=== PATIENT | male | born 1985 | race Caucasian/White ===

== ENCOUNTER 2020-01-30 20:46 | Emergency (ER) | payer OTHER ==
[~2020-01-30] VITALS: Ht 165.1 cm; Wt 62.6 kg
[2020-01-30 20:52] VITALS: BP 150/108
--- NOTE | 2020-01-30 21:49 | NUR ---
PT TAKEN TO CHAIR B
--- NOTE | 2020-01-30 21:51 | NUR ---
Dr. Felipe examining patient.
--- NOTE | 2020-01-30 22:33 | NUR ---
34 Y/O MALE PRESENTS WITH DRY MOUTH/ LIGHTHEADEDNESS/ DIZZNESS S/P DRINKING AND ENERGY DRINK. PT STATES HE USUALLY DOES NOT DRINK CAFFEINATED PRODUCTS. RESP EVEN AND UNLABORED. LUNG SOUNDS CLEAR IN BILAT LOBES. DENIES COUGH/SOB/CHEST PAIN. PT STATES HE FEELS HIS HEART RACING ON/OFF BUT DOES NOT REPORT PAIN. SCLERA IS RED. [id number]. DENIES ANY RECENT DRUG/ALCOHOL USE. NO PMH NKA
[2020-01-30 22:54] VITALS: BP 121/97
[2020-01-30 23:18] LABS: BARBITURATE, URINE NEGATIVE ng/ml (NEG <=200); BENZODIAZEPINE, URINE NEGATIVE ng/mL (NEG <=200); CANNABINOID, URINE NEGATIVE ng/mL (NEG <=50); COCAINE, URINE NEGATIVE ng/mL (NEG <=300); OPIATE, URINE NEGATIVE ng/mL (NEG <=2000); PHENCYCLIDINE SCREEN,URINE NEGATIVE ng/mL (NEG <=25)
== END 2020-01-30 22:55 | disposition home or self-care (01) ==
LOC: MED 20:46
DX: T43.615A Adverse effect of caffeine, initial encounter (principal); J39.2 Other diseases of pharynx; R42 Dizziness and giddiness; R00.2 Palpitations; Y92.89 Other specified places as the place of occurrence of the external cause
CPT/HCPCS: 80305; 93005; 99284